=== PATIENT | male | born 2000 | race Caucasian/White ===

== ENCOUNTER → 2024-03-09 | Emergency (ER) | payer MEDICARE ==
[~2024-03-09] VITALS: Ht 170.2 cm; Wt 74.5 kg
[~2024-03-09] MED LIST: NICOTINE 7 MG/24 HR 1 EA TDSY TD SCH; OLANZapine 10 MG TABDIS PO ONE; OLANZapine 10 MG TABDIS PO SCH
[2024-03-09 20:34] LABS: AMPHETAMINES, URINE NEGATIVE (NEGATIVE); BARBITURATES, URINE NEGATIVE (NEGATIVE); BENZODIAZEPINE, URINE NEGATIVE (NEGATIVE); BUPRENORPHINE, URINE NEGATIVE (NEGATIVE); CANNABINOID, URINE NEGATIVE (NEGATIVE); COCAINE, URINE NEGATIVE (NEGATIVE); ECSTASY, URINE NEGATIVE (NEGATIVE); FENTANYL, URINE NEGATIVE (NEGATIVE); METHADONE, URINE NEGATIVE (NEGATIVE); OPIATES, URINE NEGATIVE (NEGATIVE); OXYCODONE, URINE NEGATIVE (NEGATIVE); PHENCYCLIDINE, URINE NEGATIVE (NEGATIVE)
[2024-03-09 20:44] LABS: BASOPHILS 0.5 % (0-2); EOSINOPHILS 1.9 % (0-6); HEMATOCRIT 45.1 % (35.0-50.0); LYMPHOCYTES 27.3 % (24-44); MCHC 33.3 g/dl (30-36); MCV 96.4 fl (81-99); MONOCYTES 6.6 % (0-12); NEUTROPHILS 63.7 % (39-80); PLATELET COUNT 221 K/uL (140-440); RBC 4.68 M/ul (4.3-5.7); RDW 12.7 (10.5-15.0)
[2024-03-09 21:07] LABS: ACETAMINOPHEN 0 ug/mL (10-30); ALBUMIN 4.2 g/dL (3.4-5.0); ALBUMIN/GLOBULIN RATIO 1.27 (1.1-2.4); ALCOHOL, MEDICAL <3 ng/dL (<3); ALKALINE PHOSPHATASE 90 U/L (46-116); ALT (SGPT) 24 U/L (14-59); ANION GAP 12.9 (7-21); AST (SGOT) 15 U/L (15-37); BILIRUBIN, TOTAL 1.5 ng/dL (0.2-1.0); BUN/CREATININE RATIO 8.66 (6.0-28.6); CARBON DIOXIDE 27 mmol/L (21-32); CHLORIDE 102 mmol/L (98-107); CREATININE, SERUM 1.27 mg/dL (0.70-1.30); GLOMERULAR FILTRATION RATE,EST 81 mL/min (>60); POTASSIUM 3.9 mmol/L (3.5-5.1); PROTEIN, TOTAL 7.5 g/dL (6.4-8.2); TSH, 3RD GENERATION 1.325 uIU/mL (0.358-3.740); UREA NITROGEN 11 mg/dL (7-18)
[2024-03-09 21:08] LABS: SALICYLATE <0.2 mg/dL (2.8-20.0)
[2024-03-10 17:53] VITALS: BP 118/84
== END ==
LOC: ED 19:01
PROVIDERS: Family Medicine
DX: F20.9 Schizophrenia, unspecified (principal); Z91.A48 Caregiver's other noncompliance with patient's medication regimen for other reason
CPT/HCPCS: 36415; 80053; 80307; 84443; 85025; A9270; G0480